=== PATIENT | male | born 1955 | race Caucasian/White ===

== ENCOUNTER 2016-12-06 01:09 | Inpatient (IN) | payer OTHER, MEDICARE ==
[~2016-12-06] VITALS: Ht 182.9 cm; Wt 105.0 kg
[2016-12-06] VITALS (20 sets, daily range): BP systolic 104–135; BP diastolic 58–75; PULSE 71–138; RESP 18–20; TEMP 98–98.7; O2SAT 98–99
[2016-12-06] MEDS ORDERED: SODIUM CHLORIDE 0.9% FLUSH 10 ML FLUSH IVF PRN ×2 (01:30→02:15)
[2016-12-06] MEDS ORDERED: SODIUM CHLORID 0.9% 500 ML INJ 500 ML IV ONE (01:30)
[2016-12-06] MEDS ORDERED: SIMV40TA PO (01:33)
[2016-12-06] MEDS ORDERED: FURO1TAB60 PO (01:33)
[2016-12-06] MEDS ORDERED: METO50TA PO (01:33)
[2016-12-06] MEDS ORDERED: ASPI1TAB69 PO (01:33)
[2016-12-06] MEDS ORDERED: PROT40TA PO (01:33)
[2016-12-06] MEDS ORDERED: METF1000 PO (01:33)
--- NOTE | 2016-12-06 01:51 | RADRPT ---
EXAM DATE/TIME: 12/06/2016 01:34 [facility] COMPARISON: No previous studies available for comparison. INDICATIONS : Syncopal episode with head trauma. MEDICAL HISTORY : Congestive heart failure. Diabetes mellitus type II. SURGICAL HISTORY : Coronary artery stent. Defibrillator ENCOUNTER: Initial ACUITY: 1 day PAIN SCORE: 0/10 LOCATION: Bilateral chest FINDINGS: Pacer leads overlie the right atrium and right ventricle. Heart size mildly enlarged. No effusion. No pneumothorax. CONCLUSION: 1. Pacer leads in right atrium and right ventricle. Mild cardiomegaly. No focal consolidation or effu megan. No pneumothorax. Moiz Gold MD on December 06, 2016 at 1:47 Board Certified Radiologist. This report was verified electronically.
[2016-12-06 02:01] LABS: AUTOMATED NEUTROPHIL # 7.3 TH/MM3 (1.8-7.7); BASOPHIL # 0.1 TH/MM3 (0-0.2); BASOPHIL % 0.4 % (0.0-2.0); EOSINOPHIL # 0.2 TH/MM3 (0-0.4); EOSINOPHIL % 1.5 % (0.0-4.0); HEMATOCRIT 31.3 % (39.0-51.0); HEMO FLAGS DIFF FINAL; LYMPH % 24.8 % (9.0-44.0); LYMPHOCYTE # 2.8 TH/MM3 (1.0-4.8); MEAN CELL VOLUME 97.2 FL (80.0-100.0); MONO % 8.7 % (0.0-8.0); NEUT % 64.6 % (16.0-70.0); PLATELET COUNT 251 TH/MM3 (150-450); RED BLOOD COUNT 3.22 MIL/MM3 (4.50-5.90); RED CELL DISTRIBUTION WIDTH 17.3 % (11.6-17.2); WHITE BLOOD COUNT 11.4 TH/MM3 (4.0-11.0)
--- NOTE | 2016-12-06 02:09 | RADRPT ---
EXAM DATE/TIME: 12/06/2016 01:42 [facility] COMPARISON: No previous studies available for comparison. INDICATIONS : Syncopal episode. RADIATION DOSE: 41.65 CTDIvol (mGy) MEDICAL HISTORY : None SURGICAL HISTORY : None. ENCOUNTER: Initial ACUITY: 1 day PAIN SCALE: 0/10 LOCATION: cranial TECHNIQUE: Multiple contiguous axial images were obtained of the head. Using automated exposure control and adj ustment of the mA and/or kV according to patient size, radiation dose was kept as low as reasonably a chievable to obtain optimal diagnostic quality images. FINDINGS: CEREBRUM: The ventricles are normal for age. No evidence of midline shift, mass lesion, hemorrhage or acute in farction. No extra-axial fluid collections are seen. POSTERIOR FOSSA: The cerebellum and brainstem are intact. The 4th ventricle is midline. The cerebellopontine angle i s unremarkable. EXTRACRANIAL: The visualized portion of the orbits is intact. SKULL: The calvaria is intact. No evidence of skull fracture. CONCLUSION: 1. No acute intracranial abnormalities. Left periorbital soft tissue swelling. Moiz Gold MD on December 06, 2016 at 2:01 Board Certified Radiologist. This report was verified electronically.
[2016-12-06 02:10] LABS: APTT (PATIENT) 37.4 SEC (24.3-30.1); INTERNATIONAL NORMALIZED RATIO 1.4 RATIO; PROTHROMBIN TIME - PATIENT 15.2 SEC (9.8-11.6)
--- NOTE | 2016-12-06 02:12 | RADRPT ---
EXAM DATE/TIME: 12/06/2016 01:42 [facility] COMPARISON: No previous studies available for comparison. INDICATIONS : Trauma, fall. RADIATION DOSE: 63.26 CTDIvol (mGy) MEDICAL HISTORY : Hypertension. Diabetes mellitus type 2. SURGICAL HISTORY : None. ENCOUNTER: Initial ACUITY: 1 day PAIN SCORE: 8/10 LOCATION: Left facial TECHNIQUE: Volumetric scanning of the facial bones was performed. Using automated exposure control and adjustme nt of the mA and/or kV according to patient size, radiation dose was kept as low as reasonably achiev able to obtain optimal diagnostic quality images. FINDINGS: There is left periorbital soft tissue swelling. No acute facial bone fracture identified. The visuali zed paranasal sinuses are clear. Mastoid air cells are clear. Nasal septum is midline. CONCLUSION: 1. Left periorbital soft tissue swelling. No acute fracture. Moiz Gold MD on December 06, 2016 at 2:08 Board Certified Radiologist. This report was verified electronically.
[2016-12-06] MEDS ORDERED: DILTIAZEM HCL 25 MG/5 ML VIAL IV PUSH ONE (02:15)
--- NOTE | 2016-12-06 02:20 | RADRPT ---
EXAM DATE/TIME: 12/06/2016 01:56 [facility] COMPARISON: No previous studies available for comparison. INDICATIONS : Trauma, fall. RADIATION DOSE: 34.23 CTDIvol (mGy) MEDICAL HISTORY : Hypertension. Diabetes mellitus type 2. SURGICAL HISTORY : Pacemaker. ENCOUNTER: Initial ACUITY: 1 day PAIN SCALE: 0/10 LOCATION: neck TECHNIQUE: Volumetric scanning of the cervical spine was performed. Multiplanar reconstructions in the sagittal, coronal and oblique axial planes were performed. Using automated exposure control and adjustment o f the mA and/or kV according to patient size, radiation dose was kept as low as reasonably achievable to obtain optimal diagnostic quality images. FINDINGS: No acute fracture or spondylolisthesis. No prevertebral soft tissue swelling. Moderate facet arthropa thy throughout. At C3-4 there is a right-sided a prominent osteophyte resulting in right lateral recess stenosis and right sided foraminal stenosis. There is also bilateral foraminal encroachment present to lesser degree at C4-5-6-7. No other signifi cant central canal stenosis. CONCLUSION: 1. No acute findings. Moderate degenerative disc disease and facet arthropathy as above. Moiz Gold MD on December 06, 2016 at 2:14 Board Certified Radiologist. This report was verified electronically.
[2016-12-06 02:31] LABS: ANION GAP 11 MEQ/L (5-15); AST (GOT) 25 U/L (15-37); BICARBONATE 23.3 MEQ/L (21.0-32.0); BLOOD UREA NITROGEN 29 MG/DL (7-18); CHLORIDE 105 MEQ/L (98-107); GLOMERULAR FILTRATION RATE 43 ML/MIN (>89); POTASSIUM 4.4 MEQ/L (3.5-5.1); SODIUM (NA) 139 MEQ/L (136-145)
[2016-12-06 02:38] LABS: ALKALINE PHOSPHATASE 66 U/L (45-117); ALT (GPT) 27 U/L (12-78); CREATINE KINASE 231 U/L (39-308); TOTAL BILIRUBIN ADULT 0.4 MG/DL (0.2-1.0)
[2016-12-06 02:50] LABS: CKMB 2.8 NG/ML (0.5-3.6)
--- NOTE | 2016-12-06 03:37 | PD ---
HPI Chief Complaint: Syncope/Near-Syncope Time Seen by Provider: 01:18 Travel History International Travel<30 days: No Contact w/Intl Traveler<30days: No Traveled to known affect area: No History of Present Illness HPI 64-year-old male patient from the [place] with history of multiple medical issues, A. fib, pacemaker and defibrillator, recently taken off of his digoxin, presents to the ER today because patient had a syncopal episode. He states that he did not feel right and had pulled into the [place] parking lot. He does not remember what happened. He has a posterior scalp laceration and left eyelid edema. He apparently had A. fib with RVR initially when seen by EMS, and had a additional seizure-like activity, with what they thought was a tachycardia dysrhythmia on monitor, V. tach, and his defibrillator kicked in the defibrillated him. Patient does not remember episode. Currently denies any chest pains, shortness of breath, or any other issues. Modifying Factors: None Associated Signs & Symptoms: Tachycardia dysrhythmia, syncope Risk Factors: Elderly, cardiac history PFSH Past Medical History Atrial Fibrillation: Yes Heart Rhythm Problems: Yes Cardiac Catheterization: Yes Cardiomyopathy: Yes High Cholesterol: Yes Chest Pain: Yes Congestive Heart Failure: Yes Coronary Artery Disease: Yes Diabetes: Yes Patient Takes Glucophage: Yes Diminished Hearing: No Immunizations Current: Yes Tetanus Vaccination: Unknown Influenza Vaccination: No Past Surgical History AICD: Yes Appendectomy: Yes Cardiac Surgery: Yes Social History Alcohol Use: Yes Tobacco Use: No Substance Use: No Allergies-Medications (Allergen,Severity, Reaction): Coded Allergies: Niacin (Verified Allergy, Intermediate, 12/06/16) Reported Meds & Prescriptions Reported Meds & Active Scripts Active Reported Simvastatin 40 Mg Tab 40 Mg PO HS Protonix (Pantoprazole Sodium) 40 Mg Tab 40 Mg PO DAILY Metformin (Metformin HCl) 1,000 Mg Tab 1,000 Mg PO BIDPC With meals Metoprolol Tartrate 50 Mg Tab 50 Mg PO BID Lasix (Furosemide) 40 Mg Tab 40 Mg PO BID Aspirin 81 Mg Tabdr 81 Mg PO DAILY Review of Systems Except as stated in HPI: all other systems reviewed are Neg Physical Exam Narrative GENERAL: Well-developed elderly white male patient currently in moderate distress. Awake and oriented 3. SKIN: Focused skin assessment warm/dry. HEAD: Notable for 1 cm posterior left scalp laceration and notable left eyelid and cheek area ecchymosis. No orbital rim tenderness. Normocephalic. EYES: Pupils equal and round. No scleral icterus. No injection or drainage. ENT: No nasal bleeding or discharge. Mucous membranes pink and moist. NECK: Trachea midline. No JVD. CARDIOVASCULAR: Fast and irregularly irregular. RESPIRATORY: No accessory muscle use. Clear to auscultation. Breath sounds equal bilaterally. GASTROINTESTINAL: Abdomen soft, non-tender, nondistended. Hepatic and splenic margins not palpable. MUSCULOSKELETAL: No obvious deformities. No clubbing. No cyanosis. No edema. NEUROLOGICAL: Awake and alert. No obvious cranial nerve deficits. Motor grossly within normal limits. Normal speech. PSYCHIATRIC: Appropriate mood and affect; insight and judgment normal. Data Data Last Documented VS Vital Signs Date Time Temp Pulse Resp B/P Pulse Ox O2 Delivery O2 Flow Rate FiO2 12/06/16 01:28 98.0 72 20 113/75 98 Room Air Orders Electrocardiogram (12/06/16:18) Complete Blood Count With Diff (12/06/16:18) Comprehensive Metabolic Panel (12/06/16:18) Magnesium (Mg) (12/06/16:18) Ckmb (Isoenzyme) Profile (12/06/16:18) Troponin I (12/06/16:18) Act Partial Throm Time (Ptt) (12/06/16:18) Prothrombin Time / Inr (Pt) (12/06/16:18) Urinalysis - C+S If Indicated (12/06/16:18) Chest, Single Ap (12/06/16:18) Ct Brain W/O Iv Contrast(Rout) (12/06/16:18) Ecg Monitoring (12/06/16:18) Iv Access Insert/Monitor (12/06/16:18) Oximetry (12/06/16:18) Sodium Chloride 0.9% Flush (Ns Flush) (12/06/16 01:30) Sodium Chlorid 0.9% 500 Ml Inj (Ns 500 M (12/06/16 01:30) Ct Facial Bones W/O Iv Cont (12/06/16 01:45) Ct Cerv Spine W/O Contrast (12/06/16 01:50) Diltiazem Inj (Cardizem Inj) (12/06/16 02:15) Diltiazem Inj (Cardizem Inj) (12/06/16 02:15) Sodium Chloride 0.9% Flush (Ns Flush) (12/06/16 02:15) CKMB (12/06/16 01:45) CKMB% (12/06/16 01:45) Admit Order (Ed Use Only) (12/06/16 03:30) Consult Cardiology (12/06/16 ) Labs Laboratory Tests Test 12/06/16 01:45 White Blood Count 11.4 TH/MM3 Red Blood Count 3.22 MIL/MM3 Hemoglobin 10.6 GM/DL Hematocrit 31.3 % Mean Corpuscular Volume 97.2 FL Mean Corpuscular Hemoglobin 33.0 PG Mean Corpuscular Hemoglobin 34.0 % Concent Red Cell Distribution Width 17.3 % Platelet Count 251 TH/MM3 Mean Platelet Volume 7.9 FL Neutrophils (%) (Auto) 64.6 % Lymphocytes (%) (Auto) 24.8 % Monocytes (%) (Auto) 8.7 % Eosinophils (%) (Auto) 1.5 % Basophils (%) (Auto) 0.4 % Neutrophils # (Auto) 7.3 TH/MM3 Lymphocytes # (Auto) 2.8 TH/MM3 Monocytes # (Auto) 1.0 TH/MM3 Eosinophils # (Auto) 0.2 TH/MM3 Basophils # (Auto) 0.1 TH/MM3 CBC Comment DIFF FINAL Differential Comment Prothrombin Time 15.2 SEC Prothromb Time International 1.4 RATIO Ratio Activated Partial 37.4 SEC Thromboplast Time Sodium Level 139 MEQ/L Potassium Level 4.4 MEQ/L Chloride Level 105 MEQ/L Carbon Dioxide Level 23.3 MEQ/L Anion Gap 11 MEQ/L Blood Urea Nitrogen 29 MG/DL Creatinine 1.63 MG/DL Estimat Glomerular Filtration 43 ML/MIN Rate Random Glucose 118 MG/DL Calcium Level 8.2 MG/DL Magnesium Level 1.0 MG/DL Total Bilirubin 0.4 MG/DL Aspartate Amino Transf 25 U/L (AST/SGOT) Alanine Aminotransferase 27 U/L (ALT/SGPT) Alkaline Phosphatase 66 U/L Total Creatine Kinase 231 U/L Creatine Kinase MB 2.8 NG/ML Troponin I 0.03 NG/ML Total Protein 7.0 GM/DL Albumin 3.0 GM/DL MDM Medical Decision Making Medical Screen Exam Complete: Yes Emergency Medical Condition: Yes Medical Record Reviewed: Yes Interpretation(s) EKG shows A. fib with RVR at a rate of 130 bpm. No signs of acute ST-T changes. Laboratory Tests Test 12/06/16 01:45 White Blood Count 11.4 TH/MM3 (4.0-11.0) Red Blood Count 3.22 MIL/MM3 (4.50-5.90) Hemoglobin 10.6 GM/DL (13.0-17.0) Hematocrit 31.3 % (39.0-51.0) Red Cell Distribution Width 17.3 % (11.6-17.2) Monocytes (%) (Auto) 8.7 % (0.0-8.0) Monocytes # (Auto) 1.0 TH/MM3 (0-0.9) Prothrombin Time 15.2 SEC (9.8-11.6) Activated Partial 37.4 SEC Thromboplast Time (24.3-30.1) Blood Urea Nitrogen 29 MG/DL (7-18) Creatinine 1.63 MG/DL (0.60-1.30) Estimat Glomerular Filtration 43 ML/MIN (>89) Rate Random Glucose 118 MG/DL (74-106) Calcium Level 8.2 MG/DL (8.5-10.1) Magnesium Level 1.0 MG/DL (1.5-2.5) Albumin 3.0 GM/DL (3.4-5.0) Last 24 hours Impressions Cervical Spine CT 12/06/16 0150 Signed Impressions: Service Date/Time: Tuesday, December 06, 2016 01:56 - CONCLUSION: 1. No acute findings. Moderate degenerative disc disease and facet arthropathy as above. Moiz Gold MD Maxillofacial CT 12/06/16 0145 Signed Impressions: Service Date/Time: Tuesday, December 06, 2016 01:42 - CONCLUSION: 1. Left periorbital soft tissue swelling. No acute fracture. Moiz Gold MD Head CT 12/06/16 0118 Signed Impressions: Service Date/Time: Tuesday, December 06, 2016 01:42 - CONCLUSION: 1. No acute intracranial abnormalities. Left periorbital soft tissue swelling. Moiz Gold MD Chest X-Ray 12/06/16117 Signed Impressions: Service Date/Time: Tuesday, December 06, 2016 01:34 - CONCLUSION: 1. Pacer leads in right atrium and right ventricle. Mild cardiomegaly. No focal consolidation or effusion. No pneumothorax. Moiz Gold MD Differential Diagnosis Syncope, tachycardia dysrhythmiarule out metabolic issues versus dehydration versus sepsis Narrative Course Lab work did not indicate significant metabolic issues. He is in A. fib with RVR and Cardizem was initially ordered for him. However, he had episodes of bradycardia as well and it was held. Vital signs remained stable in the ER otherwise. Patient is fairly asymptomatic currently. Case was discussed with Dr. Murphy for admission. Pacemaker rep was called to evaluate patient pacemaker. In addition, per medicine consultation, they had asked that cardiology be involved as well. Case was discussed with Dr. Gold who states that he would not anything further at this time. Consult placed for cardiology. Diagnosis Primary Impression: Tachyarrhythmia Additional Impression: Syncope Admitting Information Admitting Physician Requests: Admit Ernst Dunham MD December 06, 2016 03:37
[2016-12-06] MEDS ORDERED: SODIUM CHLORIDE 0.9% FLUSH 10 ML FLUSH IV FLUSH PRN (04:00)
[2016-12-06] MEDS ORDERED: MORPHINE SULFATE 4 MG/ML INJ IV PRN (04:00)
[2016-12-06] MEDS ORDERED: ACETAMINOPHEN 325 MG TAB PO PRN (04:00)
[2016-12-06] MEDS ORDERED: BISACODYL 10 MG SUPP RECTAL PRN (04:00)
[2016-12-06] MEDS ORDERED: ONDANSETRON HCL 4 MG/2 ML VIAL IVP PRN (04:00)
[2016-12-06] MEDS: SODIUM CHLOR 0.9% 1000 ML INJ 1,000 ML IV SCH ×2 (04:22→23:48)
[2016-12-06] MEDS ORDERED: GLUCAGON 1 MG/ML VIAL OTHER PRN (04:30)
[2016-12-06] MEDS ORDERED: DEXTROSE 50% IN WATER 50 ML VIAL(D50) IV PRN (04:30)
--- NOTE | 2016-12-06 04:34 | HHI.HP ---
[facility] Service [facility] Primary Care Physician [facility] Admission Diagnosis A. fib with RVR/syncope/defibrillator firing Diagnoses: (1) Syncope (2) Scalp laceration Diagnosis: Principal (3) Atrial fibrillation with RVR Diagnosis: Principal (4) Leukocytosis Diagnosis: Principal (5) Renal insufficiency Diagnosis: Principal (6) DM (diabetes mellitus) Diagnosis: Principal Travel History International Travel<30 Days: No Contact w/Intl Traveler <30 Da: No Traveled to Known Affected Are: No History of Present Illness This is a 61-year-old male with a PMH of HTN, Afib, CAD, CHF (EF Unknown), Hyperlipidemia and DM who was brought to the ER by EMS after syncopal event. Per pt he has been living in his car which he sandoval at the [facility] in [place], states he was "pushed" out by an officer and decided to drive to [facility]. Stopped at a [place] [facility] and went inside to use the bathroom at which time had sudden syncopal event. Pt has little recollection of events. States he may have had 2nd syncopal event however he's not sure. +head trauma. No h/o syncope in the past. Upon EMS arrival, pt noted to be in A-fib w/ RVR, then had episode of Vtach per report w/ subsequent AICD firing. Pt does not recall events. While in ER, pt w/ tachy-van, HR 110's then down to 40's. States he takes Digoxin 0.25mg and 0.125mg together every morning, has been doing so for "15yrs". Seen at [facility] in [place] 1wk ago, told Digoxin level 2.5 and instructed to discontinue Digoxin. States he continues to take Metoprolol and is compliant w/ all meds. On arrival, BP 113/75, HR 72, O2 sat 98% on RA, Afebrile. WBC 11.4. Creatinine 1.63, no previous labs for comparison. INR 1.4. CT Head with no acute intracranial abnormalities, left periorbital soft tissue swelling. CXR with mild cardiomegaly, no acute findings. CT Maxillofacial left periorbital soft tissue swelling. CT C-spine no acute findings. Noted to have scalp laceration, s/p repair in ER. Dr. Gold consulted by ER physician, recommended to hold off on further medications in light of tachy-van. Pending Medtronic AICD interrogation. Review of Systems Except as stated in HPI: all other systems reviewed are Neg ROS: 14 point review of systems otherwise negative. Past Family Social History Past Medical History PMH: HTN, Afib, CAD, CHF (EF Unknown), Hyperlipidemia and DM Past Surgical History PAST SURGICAL HISTORY: AICD, Appendectomy Allergies: Coded Allergies: Niacin (Verified Allergy, Intermediate, 12/06/16) Family History PAST FAMILY HISTORY: Reviewed. No h/o DM or CAD Social History PAST SOCIAL HISTORY: Occasional alcohol. Negative for tobacco or drugs. Physical Exam Vital Signs Vital Signs Date Time Temp Pulse Resp B/P Pulse Ox O2 Delivery O2 Flow Rate FiO2 12/06/16 01:28 98.0 72 20 113/75 98 Room Air 12/06/16 01:20 20 Physical Exam PE: GENERAL: Middle-aged white male in no acute distress. HEENT: PERRLA, EOMI. No scleral icterus or conjunctival pallor. No lid lag or facial droop. Left cheek laceration. Left eye periorbital swelling and ecchymosis. Scalp laceration s/p repair. CARDIOVASCULAR: Regular rate and rhythm. No obvious murmurs to auscultation. No chest tenderness to palpation. RESPIRATORY: No obvious rhonchi or wheezing. Clear to auscultation. Breath sounds equal bilaterally. GASTROINTESTINAL: Abdomen soft, non-tender, nondistended. BS normal. MUSCULOSKELETAL: Extremities without clubbing, cyanosis, or edema. No obvious deformities. NEUROLOGICAL: Awake, alert and oriented x4. No focal neurologic deficits. Moving both upper and lower extremities spontaneously. Laboratory Laboratory Tests Test 12/06/16 01:45 White Blood Count 11.4 Red Blood Count 3.22 Hemoglobin 10.6 Hematocrit 31.3 Mean Corpuscular Volume 97.2 Mean Corpuscular Hemoglobin 33.0 Mean Corpuscular Hemoglobin 34.0 Concent Red Cell Distribution Width 17.3 Platelet Count 251 Mean Platelet Volume 7.9 Neutrophils (%) (Auto) 64.6 Lymphocytes (%) (Auto) 24.8 Monocytes (%) (Auto) 8.7 Eosinophils (%) (Auto) 1.5 Basophils (%) (Auto) 0.4 Neutrophils # (Auto) 7.3 Lymphocytes # (Auto) 2.8 Monocytes # (Auto) 1.0 Eosinophils # (Auto) 0.2 Basophils # (Auto) 0.1 CBC Comment DIFF FINAL Differential Comment Prothrombin Time 15.2 Prothromb Time International 1.4 Ratio Activated Partial 37.4 Thromboplast Time Sodium Level 139 Potassium Level 4.4 Chloride Level 105 Carbon Dioxide Level 23.3 Anion Gap 11 Blood Urea Nitrogen 29 Creatinine 1.63 Estimat Glomerular Filtration 43 Rate Random Glucose 118 Calcium Level 8.2 Magnesium Level 1.0 Total Bilirubin 0.4 Aspartate Amino Transf 25 (AST/SGOT) Alanine Aminotransferase 27 (ALT/SGPT) Alkaline Phosphatase 66 Total Creatine Kinase 231 Creatine Kinase MB 2.8 Troponin I 0.03 Total Protein 7.0 Albumin 3.0 Result Diagram: 12/06/1614412/06/16144 Assessment and Plan Problem List: (1) Syncope ICD Code: R55 Status: Acute (2) Scalp laceration ICD Code: S01.01XA Status: Acute (3) Atrial fibrillation with RVR ICD Code: I48.91 Status: Acute (4) Renal insufficiency ICD Code: N28.9 Status: Acute (5) Leukocytosis ICD Code: D72.829 Status: Acute (6) DM (diabetes mellitus) ICD Code: E11.9 Status: Acute Assessment and Plan A/P: 1. Syncope: sudden syncopal event x2, likely secondary to underlying arrhythmia, found to be in A-fib w/ RVR, followed by Vtach w/ subsequent AICD firing per EMS. CT Head/C-Spine w/ no acute fracture or intracranial abnormality, images reviewed by me. Admit for further evaluation, telemetry, check Echo. IVF for hydration. Accudial [employer] to interrogate device. 2. Afib w/ RVR: h/o A-fib, on Digoxin 0.25mg + 0.125mg PO qd x15yrs, recently told to discontinue Digoxin 1wk ago in light of elevated levels. Remains on Metoprolol. Will hold further medications as pt w/ tachy-van, HR as low as 40 's on initial arrival, currently stabilized to 80-90's HR. Will continue to monitor. Dr. Gold to eval. Check Digoxin level. 3. Scalp Laceration: secondary to fall, s/p repair in ER. Wound Care. 4. Renal Insufficiency: Creatinine 1.63, no previous labs for comparison. IVF for hydration, caution w/ h/o CHF however no fluid overload state at this time. CXR w/ no acute findings, images reviewed by me. 5. Leukocytosis: WBC 11.4. No evidence of infection, likely secondary to syncope w/ head injury. Will repeat labs in am. 6. DVT Prophylaxis: SCD/Teds. 7. Social work for d/c planning as needed. 8. Case discussed w/ ER physician at length. Physician Certification 2 Midnight Certification Type: Admission for Inpatient Services Order for Inpatient Services The services are ordered in accordance with Medicare regulations or non- Medicare payer requirements, as applicable. In the case of services not specified as inpatient-only, they are appropriately provided as inpatient services in accordance with the 2-midnight benchmark. Estimated LOS (days): 2 days is the estimated time the patient will need to remain in the hospital, assuming treatment plan goals are met and no additional complications. Post-Hospital Plan: Not yet determined Luana Murphy MD December 06, 2016 04:34
[2016-12-06] MEDS: INSULIN ASPART SUPPLEMENTAL SCALE SQ SCH ×4 (07:00→20:27)
[2016-12-06] MEDS: MAGNESIUM SULFATE 1 GM PREMIX 100 ML IV SCH ×2 (07:25→07:36)
[2016-12-06] MEDS: SODIUM CHLORIDE 0.9% FLUSH 10 ML FLUSH IV FLUSH SCH ×2 (07:36→20:27)
[2016-12-06] MEDS: ASPIRIN EC 81 MG TABEC PO SCH (07:36)
[2016-12-06] MEDS: PANTOPRAZOLE SOD 40 MG DELAYED RELEASE TAB PO SCH (07:36)
[2016-12-06] MEDS ORDERED: PRAD75CA PO (07:51)
[2016-12-06] MEDS: DILTIAZEM INJ 125 MG in SODIUM CHLORIDE 0.9% INJ 100 ML IV SCH ×2 (08:05→21:10)
[2016-12-06] MEDS ORDERED: SPIRCAP INH (10:08)
[2016-12-06] MEDS ORDERED: ALBU.5I NEB (10:08)
[2016-12-06] MEDS ORDERED: ALBU6.7H INH (10:08)
[2016-12-06] MEDS ORDERED: SYMB80AE INH (10:08)
[2016-12-06 12:05] LABS: INTERNATIONAL NORMALIZED RATIO 1.2 RATIO; PROTHROMBIN TIME - PATIENT 13.6 SEC (9.8-11.6)
[2016-12-06 12:36] LABS: DIGOXIN 0.5 NG/ML (0.8-2.0)
[2016-12-06] MEDS ORDERED: ALPRAZolam 1 MG TAB PO ONE (13:00)
[2016-12-06] MEDS: ACETAMINOPHEN/HYDROcodone 325 MG/5 MG TAB PO PRN ×2 (13:09→20:27)
--- NOTE | 2016-12-06 13:18 | MB ---
cc: RICH WEISS MD DATE OF CONSULTATION: 12/06/2016 REASON FOR CONSULTATION: 1. Syncope. 2. Atrial fibrillation with rapid ventricular response. HISTORY OF PRESENT ILLNESS: Mr. Ortega is a 61-year-old [place] who has decided to move down from [facility] to [place]. He does have a history of congestive heart failure, Medtronic AICD and atrial fibrillation. He reports multiple hospitalizations, since he left [place] in October. He apparently was well controlled there. When he came to [place] however, he has had some difficulties and was seen in the [facility] where he was apparently escorted off the property from his account. He subsequently went to the [facility] to seek attention there, he however, reports that he has not been able to fill his digoxin. Then last night he reports that he was standing to urinate and apparently had a syncopal episode. The defibrillator discharged and he subsequently sought attention in the emergency room. PAST MEDICAL HISTORY: 1. Significant for CAD. 2. Congestive heart failure. 3. Ischemic cardiomyopathy with Medtronic ICD. 4. Hypertension. 5. Hyperlipidemia. 6. Diabetes. ALLERGIES NIACIN MEDICATIONS 1. Simvastatin. 2. Protonix. 3. Metformin. 4. Metoprolol. 5. Lasix. 6. Aspirin. 7. Digoxin. The patient dosing is somewhat inconsistent. REVIEW OF SYSTEMS Except as mentioned in HPI all 12 systems are negative. SOCIAL HISTORY The patient does not smoke but does drink. He is apparently at this point homeless and living in his car. FAMILY HISTORY Noncontributory. PHYSICAL EXAMINATION: VITAL SIGNS: 98.2, 96, 18, 104/59. IN GENERAL: In general he is an obese man who is in no apparent distress. He does have ecchymosis over his left eyelid, he is in no apparent distress. NECK: The neck is free from jugular venous distention. LUNGS: The lungs are clear to auscultation. CARDIOVASCULAR SYSTEM: Normal S1, S2, the rhythm is irregularly irregular. ABDOMEN: The abdomen is soft. EXTREMITIES: The extremities are free from edema. RADIOLOGIC: ICD interrogation does show that the patient had three high ventricular rate episodes with subsequent shocks. The rhythm strips are most consistent with atrial fibrillation, rapid ventricular response. Also of note his /fluid index does show that he was reasonably well controlled until October at which time there was a steady increase suggestive of congestive heart failure. LABORATORY FINDINGS: Lab values, significant for a white count of 11.4, creatinine of 1.6, albumin of 3.0 and troponin is 0.03. IMPRESSION Atrial fibrillation with rapid ventricular rate - the patient does apparently have a history of the same. He is inconsistent with his medications. He responded nicely to the metoprolol here. Thus I would continue him on the same. Regarding anticoagulation, he likely would meet criteria by the Rickie's vas score for this, for anticoagulation. However, given his noncompliance and precarious living situation at this time I due not believe he is a reasonable candidate especially given his fall, periorbital edema and alcohol history. Congestive heart failure, chronic systolic - at this point he seems relatively well compensated. There is mild cardiomegaly but no other changes on chest x-ray. His examination is reasonably stable. Thus at this point I would continue with conservative measures. He does appear fairly well compensated and at baseline at this point. Cardiomyopathy- obtain ECHO, hx ICD Medications - the patient has had some difficulties obtaining his medications, it is not clear if case management can help but their assistance would be greatly appreciated. Rich Weiss M.D. Antony /11:53 AM /12:27 PM [id number]
--- NOTE | 2016-12-06 15:23 | EC ---
Study Study Date:12/06/2016 STUDY CONCLUSIONS SUMMARY - Left ventricle: The cavity size was severely dilated. Wall thickness was normal. Systolic function was severely reduced. The estimated ejection fraction was in the range of 20% to 25%. Diffuse hypokinesis. - Aortic valve: Valve area: 1.91cm^2 (Vmax). - Mitral valve: Mild to moderate regurgitation. - Left atrium: The atrium was mildly dilated. If LV function is below 40, please consider prescribing an ACEI or ARB or document rationale for non-use. PROCEDURE DATA STUDY STATUS: Elective. Procedure: Transthoracic echocardiography. Image quality was good. Scanning was performed from the parasternal, apical, and subcostal acoustic windows. Study completion: The patient tolerated the procedure well. Transthoracic echocardiography. M-mode, complete 2D, complete spectral Doppler, and color Doppler. Height: Height: 66in. Weight: Weight: 330.3lb. Body mass index: BMI: 53.4kg/m^2. Body surface area: BSA: 2.48m^2. Patient status: Inpatient. CARDIAC ANATOMY LEFT VENTRICLE: The cavity size was severely dilated. Wall thickness was normal. Systolic function was severely reduced. The estimated ejection fraction was in the range of 20% to 25%. Diffuse hypokinesis. AORTIC VALVE: Trileaflet; normal thickness leaflets. Doppler: Transvalvular velocity was within the normal range. There was no stenosis. No regurgitation. Valve area: 1.91cm^2 (Vmax). Indexed valve area: 0.77cm^2/m^2 (Vmax). Peak gradient: 13mm Hg (S). AORTA: Aortic root: The aortic root was normal in size. MITRAL VALVE: Structurally normal valve. Doppler: Transvalvular velocity was within the normal range. There was no evidence for stenosis. Mild to moderate regurgitation. Valve area by pressure half-time: 4.23cm^2. Indexed valve area by pressure half-time: 1.71cm^2/m^2. LEFT ATRIUM: The atrium was mildly dilated. RIGHT VENTRICLE: The cavity size was normal. Wall thickness was normal. PULMONIC VALVE: Doppler: Transvalvular velocity was within the normal range. There was no evidence for stenosis. No regurgitation. TRICUSPID VALVE: Structurally normal valve. Doppler: Transvalvular velocity was within the normal range. No regurgitation. Peak gradient: 34mm Hg (D). PULMONARY ARTERY: The main pulmonary artery was normal-sized. Systolic pressure was within the normal range. RIGHT ATRIUM: The atrium was normal in size. PERICARDIUM: There was no pericardial effusion. SYSTEMIC VEINS: Inferior vena cava: The vessel was normal in size. Patient weight: 330.3lb _Ejection fraction:_ 65-75% _Fractional shortening:_ 32% up to 5Kg 5-11.5Kg 11.6-22.9Kg 23-45Kg 45-57Kg Aortic Root 7-13 <17 13-22 17-27 17-27 LA diam 6-13 <23 24-38 33-47 37-40 RVID 10-17 7-15 7-15 7-18 8-17 LVIDd 12-22 <32 24-38 33-47 37-40 LVPW 2-4 3-6 5-7 6-8 7-8 IVS 2-4 3-6 5-7 6-8 7-8 BASIC MEASUREMENTS ADULT NORMAL Left ventricle LV internal dimension, ED, chordal *79.6 mm 43-52 level, PLAX LV internal dimension, ES, chordal *73.4 mm 23-38 level, PLAX Fractional shortening, chordal level, *8 % >29 PLAX LV posterior wall thickness, ED 9.59 mm IVS/LVPW ratio, ED 1 <1.3 Volume, ED, MOD, 1-plane 369 ml Volume, ES, MOD, 1-plane 285 ml Ejection fraction, MOD, 1-plane 23 % Stroke volume, MOD, 1-plane 84 ml Volume index, ED, MOD, 1-plane 149 ml/m^2 Volume index, ES, MOD, 1-plane 115 ml/m^2 Stroke index, MOD, 1-plane 33.9 ml/m^2 Ventricular septum Septal thickness, ED 9.6 mm Aortic valve Leaflet separation 22 mm 15-26 Left atrium Anterior-posterior dimension 50 mm Anterior-posterior dimension index 2.02 cm/m^2 <2.2 Right ventricle RV internal dimension, ED, PLAX 19.7 mm 19-38 BASIC MEASUREMENTS ADULT NORMAL Aortic valve Leaflet separation 22 mm 15-26 Aorta Root diameter, ED 33 mm 20-37 DOPPLER MEASUREMENTS ADULT NORMAL Aortic valve Peak velocity, S 179 cm/s Peak gradient, S 13 mm Hg Valve area, Vmax 1.91 cm^2 Valve area index, Vmax 0.77 cm^2/m^2 Mitral valve Pressure half-time 52 ms Valve area, pressure half-time 4.23 cm^2 Valve area index, pressure half-time 1.71 cm^2/m^2 Tricuspid valve Peak gradient, D 34 mm Hg Maximal inflow velocity 290 cm/s Systemic veins Estimated CVP 10 mm Hg Pulmonic valve Peak velocity, S 121 cm/s LEGEND: Mean values are shown as u=mean value. Asterisk (*) hodgson values outside specified normal range. Prepared and signed by Erica Freeman [id number]
--- NOTE | 2016-12-06 15:47 | EKG ---
Date Performed: 12/06/2016 Time Performed: 01:16:24 PTAGE: 61 years EKG: ATRIAL FIBRILLATION WITH RAPID VENTRICULAR RESPONSE WITH ABERRANT CONDUCTION OR VENTRICULAR PREMATURE COMPLEXES MARKED LEFT AXIS DEVIATION POSSIBLE ANTERIOR MYOCARDIAL INFARCTION ABNORMAL ECG NO PREVIOUS TRACING DOCTOR: Erica Freeman Interpretating Date/Time 12/06/2016 15:45:25
[2016-12-06] MEDS ORDERED: NITR1SUB3 SL (17:41)
[2016-12-06] MEDS ORDERED: LISI-515 PO (17:41)
[2016-12-06] MEDS: PRAVASTATIN SOD 80 MG TAB PO SCH (20:27)
[2016-12-06] MEDS: BUDESONIDE-FORMOTEROL 80/4.5 MCG INHALER INH SCH (23:34)
[2016-12-07] VITALS (27 sets, daily range): BP systolic 106–131; BP diastolic 64–98; PULSE 60–156; RESP 17–20; TEMP 97.6–98.3; O2SAT 95–100
[2016-12-07] MEDS: ACETAMINOPHEN/HYDROcodone 325 MG/5 MG TAB PO PRN ×4 (05:48→23:23)
[2016-12-07] MEDS: INSULIN ASPART SUPPLEMENTAL SCALE SQ SCH ×4 (05:49→21:00)
[2016-12-07] MEDS: DILTIAZEM INJ 125 MG in SODIUM CHLORIDE 0.9% INJ 100 ML IV SCH (06:03)
[2016-12-07] MEDS: BUDESONIDE-FORMOTEROL 80/4.5 MCG INHALER INH SCH ×2 (08:03→19:58)
[2016-12-07] MEDS: ASPIRIN EC 81 MG TABEC PO SCH (08:03)
[2016-12-07] MEDS: TIOTROPIUM BROMIDE 18 MCG INH INH SCH (08:03)
[2016-12-07] MEDS: PANTOPRAZOLE SOD 40 MG DELAYED RELEASE TAB PO SCH (08:03)
[2016-12-07] MEDS: SODIUM CHLORIDE 0.9% FLUSH 10 ML FLUSH IV FLUSH SCH ×2 (08:03→19:58)
[2016-12-07 08:16] LABS: AUTOMATED NEUTROPHIL # 5.1 TH/MM3 (1.8-7.7); BASOPHIL # 0.1 TH/MM3 (0-0.2); BASOPHIL % 0.7 % (0.0-2.0); EOSINOPHIL # 0.2 TH/MM3 (0-0.4); EOSINOPHIL % 2.2 % (0.0-4.0); HEMATOCRIT 29.1 % (39.0-51.0); HEMO FLAGS DIFF FINAL; LYMPH % 27.2 % (9.0-44.0); LYMPHOCYTE # 2.3 TH/MM3 (1.0-4.8); MEAN CELL VOLUME 98.1 FL (80.0-100.0); MEAN CORPUSCULAR HEMOGLOBIN 32.7 PG (27.0-34.0); MEAN CORPUSCULAR HGB CONC 33.4 % (32.0-36.0); MONO % 8.2 % (0.0-8.0); NEUT % 61.7 % (16.0-70.0); PLATELET COUNT 223 TH/MM3 (150-450); RED BLOOD COUNT 2.96 MIL/MM3 (4.50-5.90); RED CELL DISTRIBUTION WIDTH 16.8 % (11.6-17.2); WHITE BLOOD COUNT 8.3 TH/MM3 (4.0-11.0)
[2016-12-07 08:40] LABS: ALKALINE PHOSPHATASE 63 U/L (45-117); ALT (GPT) 27 U/L (12-78); ANION GAP 12 MEQ/L (5-15); AST (GOT) 19 U/L (15-37); BICARBONATE 22.1 MEQ/L (21.0-32.0); BLOOD UREA NITROGEN 19 MG/DL (7-18); CHLORIDE 102 MEQ/L (98-107); GLOMERULAR FILTRATION RATE 67 ML/MIN (>89); SODIUM (NA) 136 MEQ/L (136-145); TOTAL BILIRUBIN ADULT 0.7 MG/DL (0.2-1.0)
[2016-12-07] MEDS ORDERED: METOPROLOL TARTRATE 50 MG TAB PO SCH (09:45)
--- NOTE | 2016-12-07 09:48 | PD.CARD.PN ---
Subjective Subjective Remarks Pt c/o WADDELL Objective Medications Current Medications Medications (Trade) Dose Ordered Sig/Mj Route Start Time Stop Time Status Last Admin Diltiazem HCl 125 mg/Sodium Chloride 125 ml @ 0 mls/hr TITRATE IV 12/06/16 02:15 12/07/16 06:03 (NS 1000 ml Inj) 1,000 ml @ 100 mls/hr Q10H IV 12/06/16 03:48 12/06/16 04:22 (NS Flush) 2 ml UNSCH PRN IV FLUSH 12/06/16 04:00 (NS Flush) 2 ml BID IV FLUSH 12/06/16 09:00 12/07/16 08:03 (Zofran Inj) 4 mg Q6H PRN IVP 12/06/16 04:00 (Dulcolax Supp) 10 mg DAILY PRN RECTAL 12/06/16 04:00 (Tylenol) 650 mg Q6H PRN PO 12/06/16 04:00 ([place] 5-325 Mg) 1 tab Q4H PRN PO 12/06/16 04:00 12/07/16 05:48 (Morphine Inj) 2 mg Q3H PRN IV 12/06/16 04:00 (D50w (Vial) Inj) 50 ml UNSCH PRN IV 12/06/16 04:30 (Glucagon Inj) 1 mg UNSCH PRN OTHER 12/06/16 04:30 (Ecotrin Ec) 81 mg DAILY PO 12/06/16 09:00 12/07/16 08:03 (Protonix) 40 mg DAILY PO 12/06/16 09:00 12/07/16 08:03 (Pravachol) 80 mg HS PO 12/06/16 21:00 12/06/16 20:27 (Symbicort 80-4.5 Mcg Inh) 2 puff Q12HR INH 12/06/16 22:30 12/07/16 08:03 (Spiriva Inh) 18 mcg DAILY INH 12/07/16 09:00 12/07/16 08:03 Vital Signs / I&O Vital Signs Date Time Temp Pulse Resp B/P Pulse Ox O2 Delivery O2 Flow Rate FiO2 12/07/16 09:00 114 12/07/16 08:00 106 12/07/16 08:00 96 Room Air 12/07/16 07:30 96 12/07/16 07:30 98.3 86 18 106/67 96 12/07/16 06:48 20 12/07/16 06:00 60 12/07/16 05:00 82 12/07/16 04:00 100 Room Air 12/07/16 04:00 97.8 87 20 112/64 100 12/07/16 04:00 116 12/07/16 03:00 88 12/07/16 02:00 92 12/07/16 01:00 84 12/07/16 00:00 97.6 87 20 121/67 97 12/07/16 00:00 97 Room Air 12/07/16 00:00 86 12/06/16 23:00 86 12/06/16 22:00 118 12/06/16 21:00 106 12/06/16 20:00 138 12/06/16 20:00 99 Room Air 12/06/16 20:00 98.2 71 20 135/75 99 12/06/16 19:00 138 12/06/16 18:08 95 12/06/16 17:15 99 12/06/16 16:04 98 12/06/16 15:01 98.7 106 18 114/66 99 12/06/16 15:01 114 12/06/16 14:13 82 12/06/16 13:12 103 12/06/16 12:00 100 12/06/16 11:04 98.2 96 18 104/59 99 12/06/16 11:04 93 12/06/16 10:05 91 I/O 12/06/16 12/06/16 12/06/16 12/07/16 12/07/16 12/07/16 07:00 15:00 23:00 07:00 15:00 23:00 Intake Total 994 ml 208 ml 720 ml Output Total 620 ml 700 ml Balance 374 ml 208 ml 20 ml Intake Oral 720 ml IV Total 274 ml 208 ml 720 ml Output Urine Total 620 ml 700 ml # Bowel Movements 0 Physical Exam GENERAL: Well developed, well nourished. No acute distress. HEENT: Jugular venous pressure is normal. CHEST: Lungs clear to auscultation bilaterally. Unlabored respiratory effort. CARDIAC: irregular rate and rhythm without S3, S4, or murmur. ABDOMEN: Soft, nontender, no hepatosplenomegaly. Bowel sounds present. EXTREMITIES: No clubbing, cyanosis, tr edema. Laboratory Laboratory Tests Test 12/06/16 12/06/16 12/07/16 12/07/16 11:28 14:28 07:22 07:29 Prothrombin Time 13.6 SEC Prothromb Time International 1.2 RATIO Ratio Troponin I 0.08 NG/ML 0.08 NG/ML Digoxin Level 0.5 NG/ML White Blood Count 8.3 TH/MM3 Red Blood Count 2.96 MIL/MM3 Hemoglobin 9.7 GM/DL Hematocrit 29.1 % Mean Corpuscular Volume 98.1 FL Mean Corpuscular Hemoglobin 32.7 PG Mean Corpuscular Hemoglobin 33.4 % Concent Red Cell Distribution Width 16.8 % Platelet Count 223 TH/MM3 Mean Platelet Volume 7.9 FL Neutrophils (%) (Auto) 61.7 % Lymphocytes (%) (Auto) 27.2 % Monocytes (%) (Auto) 8.2 % Eosinophils (%) (Auto) 2.2 % Basophils (%) (Auto) 0.7 % Neutrophils # (Auto) 5.1 TH/MM3 Lymphocytes # (Auto) 2.3 TH/MM3 Monocytes # (Auto) 0.7 TH/MM3 Eosinophils # (Auto) 0.2 TH/MM3 Basophils # (Auto) 0.1 TH/MM3 CBC Comment DIFF FINAL Differential Comment Sodium Level 136 MEQ/L Potassium Level 4.0 MEQ/L Chloride Level 102 MEQ/L Carbon Dioxide Level 22.1 MEQ/L Anion Gap 12 MEQ/L Blood Urea Nitrogen 19 MG/DL Creatinine 1.11 MG/DL Estimat Glomerular Filtration 67 ML/MIN Rate Random Glucose 137 MG/DL Calcium Level 8.6 MG/DL Total Bilirubin 0.7 MG/DL Aspartate Amino Transf 19 U/L (AST/SGOT) Alanine Aminotransferase 27 U/L (ALT/SGPT) Alkaline Phosphatase 63 U/L Total Protein 7.2 GM/DL Albumin 3.0 GM/DL Assessment and Plan Assessment and Plan Atrial fibrillation - still with RVR on cardizem drip - stop cardizem, secondary to EF 20%, start po metoprolol, dig and PRN IV lopresser -poor coumadin candidate with noncompliance and fall with head lac Congestive heart failure - at this point he seems relatively well compensated. - change to BB Cardiomyopathy- EF 20-25% by ECHO, hx Medtronic ICD -BP too low for parrish at this time -add lasix/potassium once BP is back up Erica Freeman MD December 07, 2016 09:48
[2016-12-07] MEDS: SODIUM CHLOR 0.9% 1000 ML INJ 1,000 ML IV SCH (10:04)
[2016-12-07] MEDS: METOPROLOL TARTRATE 5 MG/5 ML VIAL IV PUSH PRN ×2 (17:15→23:34)
--- NOTE | 2016-12-07 17:20 | HHI.PR ---
Subjective Remarks Follow-up A. fib, V. tach and heart failure. States he is doing better no palpitations, chest pain and shortness of breath. Telemetry shows A. fib with controlled ventricular response. He is off Cardizem drip. AICD interrogation shows normal device function with 3 high ventricular rate episodes with 4 35 J shocks suspect A. fib with RVR. Discussed with RN Objective Vitals Vital Signs Date Time Temp Pulse Resp B/P Pulse Ox O2 Delivery O2 Flow Rate FiO2 12/07/16 17:00 146 12/07/16 16:00 106 12/07/16 15:00 97.9 97 17 120/82 96 12/07/16 15:00 94 12/07/16 14:00 79 12/07/16 13:00 94 12/07/16 12:00 101 12/07/16 11:00 98.0 88 18 116/69 95 12/07/16 11:00 108 12/07/16 10:07 117/67 12/07/16 10:00 95 12/07/16 09:00 114 12/07/16 08:00 106 12/07/16 08:00 96 Room Air 12/07/16 07:30 96 12/07/16 07:30 98.3 86 18 106/67 96 12/07/16 06:48 20 12/07/16 06:00 60 12/07/16 05:00 82 12/07/16 04:00 100 Room Air 12/07/16 04:00 97.8 87 20 112/64 100 12/07/16 04:00 116 12/07/16 03:00 88 12/07/16 02:00 92 12/07/16 01:00 84 12/07/16 00:00 97.6 87 20 121/67 97 12/07/16 00:00 97 Room Air 12/07/16 00:00 86 12/06/16 23:00 86 12/06/16 22:00 118 12/06/16 21:00 106 12/06/16 20:00 138 12/06/16 20:00 99 Room Air 12/06/16 20:00 98.2 71 20 135/75 99 12/06/16 19:00 138 12/06/16 18:08 95 12/06/16 17:15 99 I/O 12/06/16 12/06/16 12/06/16 12/07/16 12/07/16 12/07/16 07:00 15:00 23:00 07:00 15:00 23:00 Intake Total 994 ml 208 ml 720 ml Output Total 620 ml 700 ml Balance 374 ml 208 ml 20 ml Intake Oral 720 ml IV Total 274 ml 208 ml 720 ml Output Urine Total 620 ml 700 ml # Bowel Movements 0 Result Diagram: 12/07/16 0722 12/07/16 0729 Imaging Last Impressions Cervical Spine CT 12/06/16 0150 Signed Impressions: Service Date/Time: Tuesday, December 06, 2016 01:56 - CONCLUSION: 1. No acute findings. Moderate degenerative disc disease and facet arthropathy as above. Moiz Gold MD Maxillofacial CT 12/06/16 0145 Signed Impressions: Service Date/Time: Tuesday, December 06, 2016 01:42 - CONCLUSION: 1. Left periorbital soft tissue swelling. No acute fracture. Moiz Gold MD Head CT 12/06/16 0118 Signed Impressions: Service Date/Time: Tuesday, December 06, 2016 01:42 - CONCLUSION: 1. No acute intracranial abnormalities. Left periorbital soft tissue swelling. Moiz Gold MD Chest X-Ray 12/06/16 0118 Signed Impressions: Service Date/Time: Tuesday, December 06, 2016 01:34 - CONCLUSION: 1. Pacer leads in right atrium and right ventricle. Mild cardiomegaly. No focal consolidation or effusion. No pneumothorax. Moiz Gold MD Objective Remarks GENERAL: Middle-aged white male in no acute distress. HEENT: PERRLA, EOMI. No scleral icterus or conjunctival pallor. No lid lag or facial droop. Left cheek laceration. Left eye periorbital swelling and ecchymosis. Scalp laceration s/p repair. CARDIOVASCULAR: Irregularly irregular No obvious murmurs to auscultation. No chest tenderness to palpation. RESPIRATORY: No obvious rhonchi or wheezing. Clear to auscultation. Breath sounds equal bilaterally. GASTROINTESTINAL: Abdomen soft, non-tender, nondistended. BS normal. MUSCULOSKELETAL: Extremities without clubbing, cyanosis but with bilateral lower extremity pitting edema. No obvious deformities. NEUROLOGICAL: Awake, alert and oriented x4. No focal neurologic deficits. Moving both upper and lower extremities spontaneously. Procedures None A/P Problem List: (1) Syncope ICD Code: R55 Status: Acute (2) Scalp laceration ICD Code: S01.01XA Status: Acute (3) Atrial fibrillation with RVR ICD Code: I48.91 Status: Resolved (4) Renal insufficiency ICD Code: N28.9 Status: Resolved (5) Leukocytosis ICD Code: D72.829 Status: Resolved (6) DM (diabetes mellitus) ICD Code: E11.9 Status: Chronic Assessment and Plan 1. Syncope: sudden syncopal event x2, likely secondary to underlying arrhythmia, found to be in A-fib w/ RVR, followed by Vtach w/ subsequent AICD firing per EMS. AICD interrogation shows normal device function with 3 high ventricular rate episodes with 4 35 J shocks suspect A. fib with RVR. CT Head/C- Spine w/ no acute fracture or intracranial abnormality, images reviewed by me. Echo EF of 20%. Continue beta lilli and consider LEODAN inhibitor when BP And renal function stable. 2. Afib w/ RVR: h/o A-fib, on Digoxin 0.25mg + 0.125mg PO qd x15yrs, recently told to discontinue Digoxin 1wk ago in light of elevated levels. Remains on Metoprolol. Status post tachy-van, HR as low as 40's on initial arrival, currently stabilized to 80-90's HR. Cardiology restarted Lopressor and digoxin with hold parameters. Will continue to monitor. Per cardiology not a good candidate for anticoagulation secondary to noncompliance and recent fall 3. Scalp Laceration: secondary to fall, s/p repair in ER. Wound Care. 4. Acute kidney injury: Creatinine 1.63, no previous labs for comparison. Improving discontinue IVF secondary to cardiomyopathy ejection fraction of 20%. CXR w/ no acute findings, images reviewed by me. 5. Leukocytosis: WBC 11.4. No evidence of infection, likely secondary to syncope w/ head injury. Improved 6. DVT Prophylaxis: SCD/Teds. Discharge Planning Possible discharge in 1-2 days Erick Sweeney MD December 07, 2016 17:20
[2016-12-07] MEDS ORDERED: FUROSEMIDE 20 MG TAB PO ONE (18:15)
[2016-12-07] MEDS: PRAVASTATIN SOD 80 MG TAB PO SCH (19:57)
[2016-12-07] MEDS: RESP: ALBUTEROL 2.5 MG/IPRATROPIUM 0.5 MG NEB (PRN) NEB (20:11)
[2016-12-07] MEDS ORDERED: POTASSIUM CHLORIDE 10 MEQ CAP PO SCH (21:00)
[2016-12-07] MEDS ORDERED: FUROSEMIDE 20 MG TAB PO SCH (21:00)
[2016-12-07] MEDS: METOPROLOL TARTRATE 50 MG TAB PO SCH (23:23)
[2016-12-08] VITALS (26 sets, daily range): BP systolic 97–134; BP diastolic 59–98; PULSE 84–146; RESP 16–19; TEMP 98.2–98.7; O2SAT 96–99
[2016-12-08] MEDS: ALPRAZolam 0.25 MG TAB PO PRN ×2 (00:59→08:49)
[2016-12-08] MEDS: INSULIN ASPART SUPPLEMENTAL SCALE SQ SCH ×4 (05:19→20:50)
[2016-12-08] MEDS: METOPROLOL TARTRATE 50 MG TAB PO SCH (05:20)
[2016-12-08] MEDS: POTASSIUM CHLORIDE 10 MEQ CAP PO SCH ×2 (08:49→20:49)
[2016-12-08] MEDS: ASPIRIN EC 81 MG TABEC PO SCH (08:49)
[2016-12-08] MEDS: DIGOXIN 0.25 MG TAB PO SCH (08:49)
[2016-12-08] MEDS: PANTOPRAZOLE SOD 40 MG DELAYED RELEASE TAB PO SCH (08:49)
[2016-12-08] MEDS: FUROSEMIDE 20 MG TAB PO SCH ×2 (08:50→20:49)
[2016-12-08] MEDS: SODIUM CHLORIDE 0.9% FLUSH 10 ML FLUSH IV FLUSH SCH ×2 (08:50→20:49)
[2016-12-08] MEDS: ACETAMINOPHEN/HYDROcodone 325 MG/5 MG TAB PO PRN (08:50)
[2016-12-08] MEDS: BUDESONIDE-FORMOTEROL 80/4.5 MCG INHALER INH SCH ×2 (08:50→20:50)
[2016-12-08] MEDS: TIOTROPIUM BROMIDE 18 MCG INH INH SCH (08:50)
[2016-12-08] MEDS ORDERED: POTASSIUM CHLORIDE 10 MEQ CAP PO SCH (09:00)
--- NOTE | 2016-12-08 10:57 | PD.CARD.PN ---
Subjective Subjective Remarks Pt without complaints Objective Medications Current Medications Medications (Trade) Dose Ordered Sig/Mj Route Start Time Stop Time Status Last Admin (NS Flush) 2 ml UNSCH PRN IV FLUSH 12/06/16 04:00 (NS Flush) 2 ml BID IV FLUSH 12/06/16 09:00 12/08/16 08:50 (Zofran Inj) 4 mg Q6H PRN IVP 12/06/16 04:00 (Dulcolax Supp) 10 mg DAILY PRN RECTAL 12/06/16 04:00 (Tylenol) 650 mg Q6H PRN PO 12/06/16 04:00 ([place] 5-325 Mg) 1 tab Q4H PRN PO 12/06/16 04:00 12/08/16 08:50 (Morphine Inj) 2 mg Q3H PRN IV 12/06/16 04:00 (D50w (Vial) Inj) 50 ml UNSCH PRN IV 12/06/16 04:30 (Glucagon Inj) 1 mg UNSCH PRN OTHER 12/06/16 04:30 (Ecotrin Ec) 81 mg DAILY PO 12/06/16 09:00 12/08/16 08:49 (Protonix) 40 mg DAILY PO 12/06/16 09:00 12/08/16 08:49 (Pravachol) 80 mg HS PO 12/06/16 21:00 12/07/16 19:57 (Symbicort 80-4.5 Mcg Inh) 2 puff Q12HR INH 12/06/16 22:30 12/08/16 08:50 (Spiriva Inh) 18 mcg DAILY INH 12/07/16 09:00 12/08/16 08:50 (Lanoxin) 0.25 mg DAILY PO 12/08/16 09:00 12/08/16 08:49 (Lopressor Inj) 5 mg Q6H PRN IV PUSH 12/07/16 09:45 12/07/16 23:34 (Lopressor) 50 mg Q8HR PO 12/07/16 22:00 12/08/16 05:20 (Lasix) 20 mg BID PO 12/08/16 09:00 12/08/16 08:50 (KCl) 10 meq BID PO 12/08/16 09:00 12/08/16 08:49 (Xanax) 0.25 mg Q8H PRN PO 12/07/16 23:45 12/08/16 08:49 Vital Signs / I&O Vital Signs Date Time Temp Pulse Resp B/P Pulse Ox O2 Delivery O2 Flow Rate FiO2 12/08/16 09:54 16 12/08/16 08:00 98.7 135 18 124/83 96 12/08/16 08:00 106 12/08/16 07:30 Room Air 12/08/16 06:00 120 12/08/16 05:22 98.6 125 16 110/60 98 12/08/16 05:00 130 12/08/16 04:00 114 12/08/16 03:00 121 12/08/16 02:00 124 12/08/16 01:00 146 12/08/16 00:28 98.2 104 16 97/98 98 12/08/16 00:00 112 12/07/16 23:00 156 12/07/16 22:00 106 12/07/16 21:00 104 12/07/16 20:00 92 12/07/16 19:40 98.1 92 18 113/98 98 12/07/16 19:35 98 Room Air 12/07/16 19:00 82 12/07/16 18:07 115 12/07/16 17:21 127 131/69 12/07/16 17:00 146 12/07/16 16:00 106 12/07/16 15:00 97.9 97 17 120/82 96 12/07/16 15:00 94 12/07/16 14:00 79 12/07/16 13:00 94 12/07/16 12:00 101 12/07/16 11:00 98.0 88 18 116/69 95 12/07/16 11:00 108 I/O 12/07/16 12/07/16 12/07/16 12/08/16 12/08/16 12/08/16 07:00 15:00 23:00 07:00 15:00 23:00 Intake Total 208 ml 720 ml 900 ml Output Total 700 ml 800 ml Balance 208 ml 20 ml 100 ml Intake Oral 900 ml IV Total 208 ml 720 ml Output Urine Total 700 ml 800 ml # Bowel Movements 1 Physical Exam GENERAL: Well developed, well nourished. No acute distress. HEENT: Jugular venous pressure is normal. CHEST: Lungs clear to auscultation bilaterally. Unlabored respiratory effort. CARDIAC: irregular rate and rhythm without S3, S4, or murmur. ABDOMEN: Soft, nontender, no hepatosplenomegaly. Bowel sounds present. EXTREMITIES: No clubbing, cyanosis, tr edema. Assessment and Plan Assessment and Plan Atrial fibrillation - still with some RVR; increase metoprolol -add amio PO -poor coumadin candidate with noncompliance and fall with head lac Congestive heart failure - at this point he seems relatively well compensated. Cardiomyopathy- EF 20-25% by ECHO, hx Medtronic ICD -BP too low for parrish at this time -fluid and sodium restrictions Erica Freeman MD December 08, 2016 10:57
[2016-12-08] MEDS ORDERED: METOPROLOL TARTRATE 50 MG TAB PO ONE (11:00)
[2016-12-08] MEDS: AMIODARONE 200 MG TAB PO SCH ×2 (11:15→20:49)
--- NOTE | 2016-12-08 18:51 | HHI.PR ---
Subjective Remarks Follow-up A. rehan. Patient feels better telemetry shows controlled ventricular response started on amiodarone patient aware of possible side effects to the thyroid, lung and liver. Discussed with RN Objective Vitals Vital Signs Date Time Temp Pulse Resp B/P Pulse Ox O2 Delivery O2 Flow Rate FiO2 12/08/16 18:00 108 12/08/16 17:00 118 12/08/16 16:00 98.6 84 19 107/59 99 12/08/16 16:00 97 12/08/16 15:00 102 12/08/16 14:00 92 12/08/16 13:00 90 12/08/16 12:00 109 12/08/16 12:00 98.7 89 18 121/67 96 12/08/16 11:00 108 12/08/16 10:00 110 12/08/16 09:54 16 12/08/16 09:00 116 12/08/16 08:00 98.7 135 18 124/83 96 12/08/16 08:00 106 12/08/16 07:30 Room Air 12/08/16 07:00 114 12/08/16 06:00 120 12/08/16 05:22 98.6 125 16 110/60 98 12/08/16 05:00 130 12/08/16 04:00 114 12/08/16 03:00 121 12/08/16 02:00 124 12/08/16 01:00 146 12/08/16 00:28 98.2 104 16 97/98 98 12/08/16 00:00 112 12/07/16 23:00 156 12/07/16 22:00 106 12/07/16 21:00 104 12/07/16 20:00 92 12/07/16 19:40 98.1 92 18 113/98 98 12/07/16 19:35 98 Room Air 12/07/16 19:00 82 I/O 12/07/16 12/07/16 12/07/16 12/08/16 12/08/16 12/08/16 06:59 14:59 22:59 06:59 14:59 22:59 Intake Total 208 ml 720 ml 900 ml 810 ml Output Total 700 ml 800 ml 860 ml Balance 208 ml 20 ml 100 ml -50 ml Intake Oral 900 ml 810 ml IV Total 208 ml 720 ml Output Urine Total 700 ml 800 ml 860 ml # Bowel Movements 1 1 Result Diagram: 12/07/16 0722 12/07/16 0729 Imaging Last Impressions Cervical Spine CT 12/06/16 0150 Signed Impressions: Service Date/Time: Tuesday, December 06, 2016 01:56 - CONCLUSION: 1. No acute findings. Moderate degenerative disc disease and facet arthropathy as above. Moiz Gold MD Maxillofacial CT 12/06/16 0145 Signed Impressions: Service Date/Time: Tuesday, December 06, 2016 01:42 - CONCLUSION: 1. Left periorbital soft tissue swelling. No acute fracture. Moiz Gold MD Head CT 12/06/16 0118 Signed Impressions: Service Date/Time: Tuesday, December 06, 2016 01:42 - CONCLUSION: 1. No acute intracranial abnormalities. Left periorbital soft tissue swelling. Moiz Gold MD Chest X-Ray 12/06/16 0118 Signed Impressions: Service Date/Time: Tuesday, December 06, 2016 01:34 - CONCLUSION: 1. Pacer leads in right atrium and right ventricle. Mild cardiomegaly. No focal consolidation or effusion. No pneumothorax. Moiz Gold MD Objective Remarks GENERAL: Middle-aged white male in no acute distress. HEENT: PERRLA, EOMI. No scleral icterus or conjunctival pallor. No lid lag or facial droop. Left cheek laceration. Left eye periorbital swelling and ecchymosis. Scalp laceration s/p repair. CARDIOVASCULAR: Irregularly irregular No obvious murmurs to auscultation. No chest tenderness to palpation. RESPIRATORY: No obvious rhonchi or wheezing. Clear to auscultation. Breath sounds equal bilaterally. GASTROINTESTINAL: Abdomen soft, non-tender, nondistended. BS normal. MUSCULOSKELETAL: Extremities without clubbing, cyanosis but with bilateral lower extremity pitting edema. No obvious deformities. NEUROLOGICAL: Awake, alert and oriented x4. No focal neurologic deficits. Moving both upper and lower extremities spontaneously. Nonfocal Procedures None A/P Problem List: (1) Syncope ICD Code: R55 Status: Acute (2) Scalp laceration ICD Code: S01.01XA Status: Acute (3) Atrial fibrillation with RVR ICD Code: I48.91 Status: Resolved (4) Renal insufficiency ICD Code: N28.9 Status: Resolved (5) Leukocytosis ICD Code: D72.829 Status: Resolved (6) DM (diabetes mellitus) ICD Code: E11.9 Status: Chronic Assessment and Plan 1. Syncope: sudden syncopal event x2, likely secondary to underlying arrhythmia, found to be in A-fib w/ RVR, followed by Vtach w/ subsequent AICD firing per EMS. AICD interrogation shows normal device function with 3 high ventricular rate episodes with 4 35 J shocks suspect A. fib with RVR. CT Head/C- Spine w/ no acute fracture or intracranial abnormality, images reviewed by me. Echo EF of 20%. Continue beta lilli and consider LEODAN inhibitor when BP And renal function stable. 2. Afib w/ RVR: h/o A-fib, on Digoxin 0.25mg + 0.125mg PO qd x15yrs, recently told to discontinue Digoxin 1wk ago in light of elevated levels. Remains on Metoprolol. Status post tachy-van, HR as low as 40's on initial arrival, currently stabilized to 80-90's HR. Cardiology restarted Lopressor and digoxin with hold parameters. Still with RVR, amiodarone started. Will continue to monitor. Per cardiology not a good candidate for anticoagulation secondary to noncompliance and recent fall 3. Scalp Laceration: secondary to fall, s/p repair in ER. Wound Care. 4. Acute kidney injury: Creatinine 1.63, no previous labs for comparison. Improving discontinue IVF secondary to cardiomyopathy ejection fraction of 20%. CXR w/ no acute findings, images reviewed by me. 5. Leukocytosis: WBC 11.4. No evidence of infection, likely secondary to syncope w/ head injury. Improved 6. DVT Prophylaxis: SCD/Teds. Discharge Planning Possible discharge in 1-2 days Erick Sweeney MD December 08, 2016 18:51
[2016-12-08] MEDS ORDERED: ALPR.25 PO (18:55)
[2016-12-08] MEDS ORDERED: HYDR-3516 PO (18:55)
[2016-12-08] MEDS ORDERED: DIGO0.25 PO (18:55)
--- NOTE | 2016-12-08 18:56 | HHI.DCPOC ---
Discharge Care Plan Diagnosis: (1) Atrial fibrillation with RVR Your Health Problems Are: Difficulty with ADL Exercise Tolerance Goals to Promote Your Health * To prevent worsening of your condition and complications * To maintain your health at the optimal level Directions to Meet Your Goals Take your medications as prescribed Follow your dietary instruction Follow activity as directed Keep your appointments as scheduled Take your immunizations and boosters as scheduled If your symptoms worsen call your PCP, if no PCP go to Urgent Care Center or Emergency Room Smoking is Dangerous to Your Health. Avoid second hand smoke Call the 24-hour hour crisis hotline for domestic abuse at Erick Sweeney MD December 08, 2016 18:56
[2016-12-08] MEDS: PRAVASTATIN SOD 80 MG TAB PO SCH (20:49)
[2016-12-08] MEDS: RESP: ALBUTEROL 2.5 MG/IPRATROPIUM 0.5 MG NEB (PRN) NEB (20:57)
[2016-12-08] MEDS ORDERED: METOPROLOL TARTRATE 100 MG TAB PO SCH (21:00)
[2016-12-09] VITALS (24 sets, daily range): BP systolic 104–135; BP diastolic 68–86; PULSE 81–134; RESP 18; TEMP 98.1–98.6; O2SAT 98–99
[2016-12-09] MEDS: ALPRAZolam 0.25 MG TAB PO PRN ×2 (00:49→23:36)
[2016-12-09] MEDS: RESP: ALBUTEROL 2.5 MG/IPRATROPIUM 0.5 MG NEB (PRN) NEB ×3 (00:54→20:21)
[2016-12-09] MEDS: INSULIN ASPART SUPPLEMENTAL SCALE SQ SCH ×4 (06:11→21:00)
[2016-12-09 06:47] LABS: MAGNESIUM 1.5 MG/DL (1.5-2.5); POTASSIUM 4.2 MEQ/L (3.5-5.1)
--- NOTE | 2016-12-09 07:42 | PD.CARD.PN ---
Subjective Subjective Remarks Pt without complaints Objective Medications Current Medications Medications (Trade) Dose Ordered Sig/Mj Route Start Time Stop Time Status Last Admin (NS Flush) 2 ml UNSCH PRN IV FLUSH 12/06/16 04:00 (NS Flush) 2 ml BID IV FLUSH 12/06/16 09:00 12/08/16 20:49 (Zofran Inj) 4 mg Q6H PRN IVP 12/06/16 04:00 (Dulcolax Supp) 10 mg DAILY PRN RECTAL 12/06/16 04:00 (Tylenol) 650 mg Q6H PRN PO 12/06/16 04:00 ([place] 5-325 Mg) 1 tab Q4H PRN PO 12/06/16 04:00 12/08/16 08:50 (Morphine Inj) 2 mg Q3H PRN IV 12/06/16 04:00 (D50w (Vial) Inj) 50 ml UNSCH PRN IV 12/06/16 04:30 (Glucagon Inj) 1 mg UNSCH PRN OTHER 12/06/16 04:30 (Ecotrin Ec) 81 mg DAILY PO 12/06/16 09:00 12/08/16 08:49 (Protonix) 40 mg DAILY PO 12/06/16 09:00 12/08/16 08:49 (Pravachol) 80 mg HS PO 12/06/16 21:00 12/08/16 20:49 (Symbicort 80-4.5 Mcg Inh) 2 puff Q12HR INH 12/06/16 22:30 12/08/16 20:50 (Spiriva Inh) 18 mcg DAILY INH 12/07/16 09:00 12/08/16 08:50 (Lanoxin) 0.25 mg DAILY PO 12/08/16 09:00 12/08/16 08:49 (Lopressor Inj) 5 mg Q6H PRN IV PUSH 12/07/16 09:45 12/07/16 23:34 (Lasix) 20 mg BID PO 12/08/16 09:00 12/08/16 20:49 (KCl) 10 meq BID PO 12/08/16 09:00 12/08/16 20:49 (Xanax) 0.25 mg Q8H PRN PO 12/07/16 23:45 12/09/16 00:49 (Lopressor) 100 mg Q12HR PO 12/08/16 21:00 12/08/16 20:49 (Cordarone) 400 mg Q12HR PO 12/08/16 11:00 12/08/16 20:49 Vital Signs / I&O Vital Signs Date Time Temp Pulse Resp B/P Pulse Ox O2 Delivery O2 Flow Rate FiO2 12/09/16 06:00 106 12/09/16 05:00 101 12/09/16 04:00 98.1 95 18 132/78 99 12/09/16 04:00 107 12/09/16 03:00 103 12/09/16 02:00 92 12/09/16 01:00 102 12/09/16 00:00 108 12/09/16 00:00 98.6 102 18 124/77 99 12/08/16 23:00 102 12/08/16 22:00 102 12/08/16 21:00 122 12/08/16 20:35 Room Air 12/08/16 20:00 98.7 104 18 134/83 96 12/08/16 20:00 97 12/08/16 19:00 106 12/08/16 18:00 108 12/08/16 17:00 118 12/08/16 16:00 98.6 84 19 107/59 99 12/08/16 16:00 97 12/08/16 15:00 102 12/08/16 14:00 92 12/08/16 13:00 90 12/08/16 12:00 109 12/08/16 12:00 98.7 89 18 121/67 96 12/08/16 11:00 108 12/08/16 10:00 110 12/08/16 09:54 16 12/08/16 09:00 116 12/08/16 08:00 98.7 135 18 124/83 96 12/08/16 08:00 106 I/O 12/08/16 12/08/16 12/08/16 12/09/16 12/09/16 12/09/16 07:00 15:00 23:00 07:00 15:00 23:00 Intake Total 810 ml 360 ml Output Total 860 ml Balance -50 ml 360 ml Intake Oral 810 ml 360 ml Output Urine Total 860 ml # Voids 4 # Bowel Movements 1 Physical Exam GENERAL: Well developed, well nourished. No acute distress. HEENT: Jugular venous pressure is normal. CHEST: Lungs clear to auscultation bilaterally. Unlabored respiratory effort. CARDIAC: irregular rate and rhythm without S3, S4, or murmur. ABDOMEN: Soft, nontender, no hepatosplenomegaly. Bowel sounds present. EXTREMITIES: No clubbing, cyanosis, tr edema. Laboratory Laboratory Tests Test 12/09/16 05:25 Sodium Level 139 MEQ/L Potassium Level 4.2 MEQ/L Chloride Level 104 MEQ/L Carbon Dioxide Level 26.0 MEQ/L Anion Gap 9 MEQ/L Blood Urea Nitrogen 20 MG/DL Creatinine 1.23 MG/DL Estimat Glomerular Filtration 60 ML/MIN Rate Random Glucose 121 MG/DL Calcium Level 8.7 MG/DL Magnesium Level 1.5 MG/DL Assessment and Plan Assessment and Plan Atrial fibrillation - still with some RVR; increase metoprolol further -poor coumadin candidate with noncompliance and fall with head lac Congestive heart failure - at this point he seems relatively well compensated. Cardiomyopathy- EF 20-25% by ECHO, hx Medtronic ICD -BP too low for parrish at this time -fluid and sodium restrictions Erica Freeman MD December 09, 2016 07:42
[2016-12-09] MEDS: AMIODARONE 200 MG TAB PO SCH ×2 (08:58→20:19)
[2016-12-09] MEDS: POTASSIUM CHLORIDE 10 MEQ CAP PO SCH ×2 (08:59→20:18)
[2016-12-09] MEDS: METOPROLOL TARTRATE 50 MG TAB PO SCH ×2 (08:59→20:18)
[2016-12-09] MEDS: FUROSEMIDE 20 MG TAB PO SCH ×2 (08:59→20:18)
[2016-12-09] MEDS: ASPIRIN EC 81 MG TABEC PO SCH (08:59)
[2016-12-09] MEDS: TIOTROPIUM BROMIDE 18 MCG INH INH SCH (09:00)
[2016-12-09] MEDS: SODIUM CHLORIDE 0.9% FLUSH 10 ML FLUSH IV FLUSH SCH ×2 (09:00→20:19)
[2016-12-09] MEDS: DIGOXIN 0.25 MG TAB PO SCH (09:00)
[2016-12-09] MEDS: BUDESONIDE-FORMOTEROL 80/4.5 MCG INHALER INH SCH ×2 (09:00→20:19)
[2016-12-09] MEDS ORDERED: METOPROLOL TARTRATE 100 MG TAB PO SCH (09:00)
[2016-12-09] MEDS: PANTOPRAZOLE SOD 40 MG DELAYED RELEASE TAB PO SCH (09:00)
--- NOTE | 2016-12-09 12:39 | HHI.PR ---
Subjective Remarks no compliants telemetry- a fib 90s occasional low 100s Objective Vitals Vital Signs Date Time Temp Pulse Resp B/P Pulse Ox O2 Delivery O2 Flow Rate FiO2 12/09/16 08:00 98.3 134 18 124/86 98 12/09/16 06:00 106 12/09/16 05:00 101 12/09/16 04:00 98.1 95 18 132/78 99 12/09/16 04:00 107 12/09/16 03:00 103 12/09/16 02:00 92 12/09/16 01:00 102 12/09/16 00:00 108 12/09/16 00:00 98.6 102 18 124/77 99 12/08/16 23:00 102 12/08/16 22:00 102 12/08/16 21:00 122 12/08/16 20:35 Room Air 12/08/16 20:00 98.7 104 18 134/83 96 12/08/16 20:00 97 12/08/16 19:00 106 12/08/16 18:00 108 12/08/16 17:00 118 12/08/16 16:00 98.6 84 19 107/59 99 12/08/16 16:00 97 12/08/16 15:00 102 12/08/16 14:00 92 12/08/16 13:00 90 I/O 12/08/16 12/08/16 12/08/16 12/09/16 12/09/16 12/09/16 07:00 15:00 23:00 07:00 15:00 23:00 Intake Total 810 ml 360 ml Output Total 860 ml Balance -50 ml 360 ml Intake Oral 810 ml 360 ml Output Urine Total 860 ml # Voids 4 # Bowel Movements 1 Result Diagram: 12/07/16 0722 12/09/16 0525 Imaging Last Impressions Cervical Spine CT 12/06/16 0150 Signed Impressions: Service Date/Time: Tuesday, December 06, 2016 01:56 - CONCLUSION: 1. No acute findings. Moderate degenerative disc disease and facet arthropathy as above. Moiz Gold MD Maxillofacial CT 12/06/16 0145 Signed Impressions: Service Date/Time: Tuesday, December 06, 2016 01:42 - CONCLUSION: 1. Left periorbital soft tissue swelling. No acute fracture. Moiz Gold MD Head CT 12/06/16117 Signed Impressions: Service Date/Time: Tuesday, December 06, 2016 01:42 - CONCLUSION: 1. No acute intracranial abnormalities. Left periorbital soft tissue swelling. Moiz Gold MD Chest X-Ray 12/06/16117 Signed Impressions: Service Date/Time: Tuesday, December 06, 2016 01:34 - CONCLUSION: 1. Pacer leads in right atrium and right ventricle. Mild cardiomegaly. No focal consolidation or effusion. No pneumothorax. Moiz Gold MD Objective Remarks awake and alert, NAD left infraorbital ecchymoses no nuchal rigidity lungs no rales irregular rhythm abdomen soft, nontender extremities - no edema Procedures None A/P Problem List: (1) Syncope ICD Code: R55 Status: Acute (2) Scalp laceration ICD Code: S01.01XA Status: Acute (3) Atrial fibrillation with RVR ICD Code: I48.91 Status: Resolved (4) Renal insufficiency ICD Code: N28.9 Status: Resolved (5) Leukocytosis ICD Code: D72.829 Status: Resolved (6) DM (diabetes mellitus) ICD Code: E11.9 Status: Chronic Assessment and Plan Assessment and Plan 61 years old male. Syncope: sudden syncopal event x2, likely secondary to underlying arrhythmia, found to be in A-fib w/ RVR, followed by Vtach w/ subsequent AICD firing per EMS. AICD interrogation shows normal device function with 3 high ventricular rate episodes with 4 35 J shocks suspect A. fib with RVR. CT Head/C-Spine w/ no acute fracture or intracranial abnormality, images reviewed by me. Echo EF of 20%. Cardiology ff BB dose increased to 150 mg bid on amiodarone and digoxin consider adding Jomar cardiology ff not a good candidate for anticoagulation- falls. alcoholism Scalp Laceration: secondary to fall, s/p repair in ER. Wound Care. Acute kidney injury: Creatinine 1.63, no previous labs for comparison. Improving Leukocytosis: WBC 11.4. No evidence of infection, likely secondary to syncope w/ head injury. Improved Macario Birmingham MD December 09, 2016 12:39 syncope w/ head injury. Improved 6. DVT Prophylaxis: SCD/Teds. Discharge Planning Possible discharge in 1-2 days Macario Birmingham MD December 09, 2016 12:39
[2016-12-09] MEDS: PRAVASTATIN SOD 80 MG TAB PO SCH (20:18)
[2016-12-09] MEDS: ACETAMINOPHEN/HYDROcodone 325 MG/5 MG TAB PO PRN (20:19)
[2016-12-10] VITALS (12 sets, daily range): BP systolic 122–153; BP diastolic 72–77; PULSE 70–128; RESP 18; TEMP 97.9–98.1; O2SAT 98–99
[2016-12-10] MEDS: RESP: ALBUTEROL 2.5 MG/IPRATROPIUM 0.5 MG NEB (PRN) NEB (03:25)
[2016-12-10] MEDS: INSULIN ASPART SUPPLEMENTAL SCALE SQ SCH (06:05)
--- NOTE | 2016-12-10 07:05 | PD.CARD.PN ---
Subjective Subjective Remarks PT request d/c Objective Medications Current Medications Medications (Trade) Dose Ordered Sig/Mj Route Start Time Stop Time Status Last Admin (NS Flush) 2 ml UNSCH PRN IV FLUSH 12/06/16 04:00 (NS Flush) 2 ml BID IV FLUSH 12/06/16 09:00 12/09/16 20:19 (Zofran Inj) 4 mg Q6H PRN IVP 12/06/16 04:00 (Dulcolax Supp) 10 mg DAILY PRN RECTAL 12/06/16 04:00 (Tylenol) 650 mg Q6H PRN PO 12/06/16 04:00 ([place] 5-325 Mg) 1 tab Q4H PRN PO 12/06/16 04:00 12/09/16 20:19 (Morphine Inj) 2 mg Q3H PRN IV 12/06/16 04:00 (D50w (Vial) Inj) 50 ml UNSCH PRN IV 12/06/16 04:30 (Glucagon Inj) 1 mg UNSCH PRN OTHER 12/06/16 04:30 (Ecotrin Ec) 81 mg DAILY PO 12/06/16 09:00 12/09/16 08:59 (Protonix) 40 mg DAILY PO 12/06/16 09:00 12/09/16 09:00 (Pravachol) 80 mg HS PO 12/06/16 21:00 12/09/16 20:18 (Symbicort 80-4.5 Mcg Inh) 2 puff Q12HR INH 12/06/16 22:30 12/09/16 20:19 (Spiriva Inh) 18 mcg DAILY INH 12/07/16 09:00 12/09/16 09:00 (Lanoxin) 0.25 mg DAILY PO 12/08/16 09:00 12/09/16 09:00 (Lopressor Inj) 5 mg Q6H PRN IV PUSH 12/07/16 09:45 12/07/16 23:34 (Lasix) 20 mg BID PO 12/08/16 09:00 12/09/16 20:18 (KCl) 10 meq BID PO 12/08/16 09:00 12/09/16 20:18 (Xanax) 0.25 mg Q8H PRN PO 12/07/16 23:45 12/09/16 23:36 (Cordarone) 400 mg Q12HR PO 12/08/16 11:00 12/09/16 20:19 (Lopressor) 150 mg Q12HR PO 12/09/16 09:00 12/09/16 20:18 Vital Signs / I&O Vital Signs Date Time Temp Pulse Resp B/P Pulse Ox O2 Delivery O2 Flow Rate FiO2 12/10/16 06:00 82 12/10/16 05:00 81 12/10/16 04:00 79 12/10/16 03:30 98.1 85 18 122/72 98 12/10/16 03:00 88 12/10/16 02:00 70 12/10/16 01:00 77 12/10/16 00:00 97.9 78 18 153/74 99 12/10/16 00:00 95 12/09/16 23:00 96 12/09/16 22:00 102 12/09/16 21:00 86 12/09/16 20:15 Room Air 12/09/16 20:00 98.6 84 18 121/77 99 12/09/16 20:00 81 12/09/16 19:00 100 12/09/16 18:00 84 12/09/16 17:00 82 12/09/16 16:00 88 12/09/16 16:00 98.6 88 18 104/68 99 12/09/16 15:00 104 12/09/16 14:00 82 12/09/16 13:00 84 12/09/16 12:00 98.4 90 18 135/79 99 12/09/16 12:00 102 12/09/16 11:00 112 12/09/16 10:00 100 12/09/16 09:00 120 12/09/16 08:00 126 12/09/16 08:00 98.3 134 18 124/86 98 I/O 12/09/16 12/09/16 12/09/16 12/10/16 12/10/16 12/10/16 07:00 15:00 23:00 07:00 15:00 23:00 Intake Total 360 ml 720 ml 480 ml Balance 360 ml 720 ml 480 ml Intake Oral 360 ml 720 ml 480 ml # Voids 4 4 5 Physical Exam GENERAL: Well developed, well nourished. No acute distress. HEENT: Jugular venous pressure is normal. CHEST: Lungs clear to auscultation bilaterally. Unlabored respiratory effort. CARDIAC: irregular rate and rhythm without S3, S4, or murmur. ABDOMEN: Soft, nontender, no hepatosplenomegaly. Bowel sounds present. EXTREMITIES: No clubbing, cyanosis, tr edema. Assessment and Plan Assessment and Plan Atrial fibrillation - reasonable rate control, decrease amio s/p PO load -poor coumadin candidate with noncompliance and fall with head lac Congestive heart failure - at this point he seems relatively well compensated. Cardiomyopathy- EF 20-25% by ECHO, hx Medtronic ICD -add parrish -fluid and sodium restrictions Dispo- reasonable for d/c, available PRN Erica Freeman MD December 10, 2016 07:05
[2016-12-10] MEDS ORDERED: LISI-519 PO (08:17)
[2016-12-10] MEDS ORDERED: METO-309 PO (08:17)
[2016-12-10] MEDS ORDERED: AMIO200T PO (08:17)
--- NOTE | 2016-12-10 08:45 | HHI.PR ---
Subjective Remarks no complains- HR-80-s up and ambulating wanting to be discharge to get his check- driving through here to go to [place] Objective Vitals Vital Signs Date Time Temp Pulse Resp B/P Pulse Ox O2 Delivery O2 Flow Rate FiO2 12/10/16 06:00 82 12/10/16 05:00 81 12/10/16 04:00 79 12/10/16 03:30 98.1 85 18 122/72 98 12/10/16 03:00 88 12/10/16 02:00 70 12/10/16 01:00 77 12/10/16 00:00 97.9 78 18 153/74 99 12/10/16 00:00 95 12/09/16 23:00 96 12/09/16 22:00 102 12/09/16 21:00 86 12/09/16 20:15 Room Air 12/09/16 20:00 98.6 84 18 121/77 99 12/09/16 20:00 81 12/09/16 19:00 100 12/09/16 18:00 84 12/09/16 17:00 82 12/09/16 16:00 88 12/09/16 16:00 98.6 88 18 104/68 99 12/09/16 15:00 104 12/09/16 14:00 82 12/09/16 13:00 84 12/09/16 12:00 98.4 90 18 135/79 99 12/09/16 12:00 102 12/09/16 11:00 112 12/09/16 10:00 100 12/09/16 09:00 120 I/O 12/09/16 12/09/16 12/09/16 12/10/16 12/10/16 12/10/16 07:00 15:00 23:00 07:00 15:00 23:00 Intake Total 360 ml 720 ml 480 ml Balance 360 ml 720 ml 480 ml Intake Oral 360 ml 720 ml 480 ml # Voids 4 4 5 Result Diagram: 12/07/16 0722 12/09/16 0525 Imaging Last Impressions Cervical Spine CT 12/06/16 0150 Signed Impressions: Service Date/Time: Tuesday, December 06, 2016 01:56 - CONCLUSION: 1. No acute findings. Moderate degenerative disc disease and facet arthropathy as above. Moiz Gold MD Maxillofacial CT 12/06/16 0145 Signed Impressions: Service Date/Time: Tuesday, December 06, 2016 01:42 - CONCLUSION: 1. Left periorbital soft tissue swelling. No acute fracture. Moiz Gold MD Head CT 12/06/16 0118 Signed Impressions: Service Date/Time: Tuesday, December 06, 2016 01:42 - CONCLUSION: 1. No acute intracranial abnormalities. Left periorbital soft tissue swelling. Moiz Gold MD Chest X-Ray 12/06/16117 Signed Impressions: Service Date/Time: Tuesday, December 06, 2016 01:34 - CONCLUSION: 1. Pacer leads in right atrium and right ventricle. Mild cardiomegaly. No focal consolidation or effusion. No pneumothorax. Moiz Gold MD Objective Remarks awake and alert, NAD left infraorbital ecchymoses- improved, no visual field defects, pupils equal no nuchal rigidity lungs no rales irregular rhythm abdomen soft, nontender extremities - no edema Procedures None A/P Problem List: (1) Syncope ICD Code: R55 Status: Acute (2) Scalp laceration ICD Code: S01.01XA Status: Acute (3) Atrial fibrillation with RVR ICD Code: I48.91 Status: Resolved (4) Renal insufficiency ICD Code: N28.9 Status: Resolved (5) Leukocytosis ICD Code: D72.829 Status: Resolved (6) DM (diabetes mellitus) ICD Code: E11.9 Status: Chronic Assessment and Plan Assessment and Plan 61 years old male. Syncope: sudden syncopal event x2, likely secondary to underlying arrhythmia, found to be in A-fib w/ RVR, followed by Vtach w/ subsequent AICD firing per EMS. AICD interrogation shows normal device function with 3 high ventricular rate episodes with 4 35 J shocks suspect A. fib with RVR. CT Head/C-Spine w/ no acute fracture or intracranial abnormality, images reviewed by me. Echo EF of 20%. Cardiology ff BB dose increased to 150 mg bid on amiodarone and digoxin Lisinorpil added to regimen not a good candidate for anticoagulation- falls. ? alcoholism Scalp Laceration: secondary to fall, s/p repair in ER. Wound Care. carmelita in place- site dry- removed carmelita in 5days Acute kidney injury:likely with underlying CKI. Creatinine 1.63, no previous labs for comparison. non oliguric Leukocytosis: WBC 11.4. No evidence of infection, likely secondary to syncope w/ head injury. Improved [facility] - will ask CM to assist with getting meds here from here to go home with Macario Birmingham MD December 10, 2016 08:45
[2016-12-10] MEDS ORDERED: FURO20TA PO (08:53)
[2016-12-10] MEDS ORDERED: POTA10CA PO (08:54)
[2016-12-10] MEDS ORDERED: LISINOPRIL 5 MG TAB PO SCH (09:00)
[2016-12-10] MEDS: TIOTROPIUM BROMIDE 18 MCG INH INH SCH (09:00)
[2016-12-10] MEDS ORDERED: AMIODARONE 200 MG TAB PO SCH (09:00)
[2016-12-10] MEDS: BUDESONIDE-FORMOTEROL 80/4.5 MCG INHALER INH SCH (09:00)
[2016-12-10] MEDS: SODIUM CHLORIDE 0.9% FLUSH 10 ML FLUSH IV FLUSH SCH (09:00)
[2016-12-10] MEDS: DIGOXIN 0.25 MG TAB PO SCH (09:27)
[2016-12-10] MEDS: POTASSIUM CHLORIDE 10 MEQ CAP PO SCH (09:28)
[2016-12-10] MEDS: FUROSEMIDE 20 MG TAB PO SCH (09:29)
[2016-12-10] MEDS: METOPROLOL TARTRATE 50 MG TAB PO SCH (09:29)
[2016-12-10] MEDS: ASPIRIN EC 81 MG TABEC PO SCH (09:29)
[2016-12-10] MEDS: PANTOPRAZOLE SOD 40 MG DELAYED RELEASE TAB PO SCH (09:32)
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
--- NOTE | 2017-01-06 11:57 | PQ ---
Physician Query Response Document PATIENT: XIOMARA BISHOP : 1955 ADMIT DATE: 12/06/2016 3:32 AM DISCH DATE: 12/10/2016 11:06 AM RESPONDING PROVIDER #: Kassi QUERY TEXT: Clinical Validity Additional clinical indicators are required to support your documented diagnosis of: alcoholism (alc ohol use, alcohol abuse, or alcohol dependence) Please respond and also state in your next progress note whether: -- Condition exists and also please provide clinical indicators to support the diagnosis -- Condition does not exist and also please provide amended documentation in the medical record to sangeetha mckinley -- Unable to provide additional clarity regarding the diagnosis -- Other, please specify If you have any additional questions/comments and/or concerns, please do not hesitate to reach out to the CDI/Coding Hotline, Ext. [phone]. The patient's Clinical Indicators include: Progress Note 12/09/16 by Attending (2nd paragraph under Assessment): not a good candidate for antico agulation- falls. alcoholism (this is the only mention of this diagnosis). H Occasional alcohol. Negative for tobacco or drugs. No BAL documented from admission. No documentation of withdrawal symptoms during this admission. Query created by: Chelly Goodman on 12/12/2016 11:56 AM RESPONSE TEXT: Provider disagreed with this CDI query. no documentation of alcoholism Electronically signed by: Macario Birmingham MD 01/06/2017 11:53 AM
== END 2016-12-10 11:06 | disposition home or self-care (01) | DRG 309 ==
LOC: NEPC 01:09 → NEDA 03:32 → HCIS 07:14
PROVIDERS: ADMIT Internal Medicine; ATTEND Internal Medicine
PROC: 4B02XTZ Measurement of Cardiac Defibrillator, External Approach (ICD-10-PCS; principal; 2016-12-06)
PROC: 0HQ0XZZ Repair Scalp Skin, External Approach (ICD-10-PCS; 2016-12-06)
DX: I48.91 Unspecified atrial fibrillation (principal); N17.9 Acute kidney failure, unspecified; I50.22 Chronic systolic (congestive) heart failure; D72.829 Elevated white blood cell count, unspecified; E11.9 Type 2 diabetes mellitus without complications; I10 Essential (primary) hypertension; R55 Syncope and collapse; S01.01XA Laceration without foreign body of scalp, initial encounter; W19.XXXA Unspecified fall, initial encounter; Z79.84 Long term (current) use of oral hypoglycemic drugs; I25.10 Atherosclerotic heart disease of native coronary artery without angina pectoris; I25.5 Ischemic cardiomyopathy; Z95.810 Presence of automatic (implantable) cardiac defibrillator; Z59.0 Homelessness; E78.5 Hyperlipidemia, unspecified; Z91.14 Patient's other noncompliance with medication regimen; Z72.89 Other problems related to lifestyle; Z79.82 Long term (current) use of aspirin
CPT/HCPCS: 12001; 70450; 70486; 71010; 72125; 80048; 80053; 80162; 82550; 82552; 82948; 83735; 84484; 85025; 85610; 85730; 93005; 93306; 94640; 94664; 96360; J1815; J3475; J7030; J7040